=== PATIENT | female | born 1945 | race Hispanic/Latino ===

== ENCOUNTER 2021-07-20 14:12 | Emergency (ER) | payer MEDICARE, OTHER ==
[2021-07-20] MEDS ORDERED: methylPREDNISolone Sod Succ/PF 125 MG/2 ML VIAL ONE (14:38)
== END 2021-07-20 14:54 | disposition home or self-care (01) ==
LOC: NAV ERS 14:12
DX: M54.12 Radiculopathy, cervical region (principal); R00.1 Bradycardia, unspecified; K21.9 Gastro-esophageal reflux disease without esophagitis; Z79.899 Other long term (current) drug therapy
CPT/HCPCS: J2930

== ENCOUNTER 2023-01-19 07:32 | Emergency (ER) | payer MEDICARE, OTHER ==
[2023-01-19] MEDS ORDERED: Ibuprofen 200 MG TAB ONE (08:42)
== END 2023-01-19 08:45 | disposition home or self-care (01) ==
LOC: NAV ERS 07:32
DX: M79.652 Pain in left thigh (principal); E78.00 Pure hypercholesterolemia, unspecified; K21.9 Gastro-esophageal reflux disease without esophagitis; W17.89XA Other fall from one level to another, initial encounter; Z79.899 Other long term (current) drug therapy
CPT/HCPCS: 99283